=== PATIENT | male | born 1995 | race African-American/Black ===

== ENCOUNTER 2016-06-21 22:08 | Emergency (ER) | payer MEDICAID ==
[~2016-06-21] VITALS: Ht 177.8 cm; Wt 65.9 kg
[2016-06-21 22:12] VITALS: BP 127/73; TEMP 97.9
[2016-06-21 22:42] VITALS: PULSE 79
== END 2016-06-21 22:42 | disposition home or self-care (01) ==
LOC: COL.ER 22:08
DX: H00.013 Hordeolum externum right eye, unspecified eyelid (principal); F17.210 Nicotine dependence, cigarettes, uncomplicated

== ENCOUNTER 2017-08-06 13:58 | Emergency (ER) | payer MEDICAID ==
[~2017-08-06] VITALS: Ht 177.8 cm; Wt 65.9 kg
[2017-08-06 14:04] VITALS: BP 115/61; TEMP 98.8
[2017-08-06] MEDS ORDERED: ILOTYCIN5 MG/GM OP (14:29)
[2017-08-06 14:47] VITALS: PULSE 59
== END 2017-08-06 14:48 | disposition home or self-care (01) ==
LOC: COL.ER 13:58
DX: H00.014 Hordeolum externum left upper eyelid (principal); F17.210 Nicotine dependence, cigarettes, uncomplicated

== ENCOUNTER 2017-08-07 23:45 | Emergency (ER) | payer MEDICAID ==
[~2017-08-07] VITALS: Ht 177.8 cm; Wt 65.9 kg
[~2017-08-07 23:45] MED LIST: ILOTYCIN5 MG/GM OP
[2017-08-07 23:52] VITALS: BP 125/77; TEMP 98.4
[2017-08-08 01:52] VITALS: PULSE 70
== END 2017-08-08 01:52 | disposition home or self-care (01) ==
LOC: COL.ER 23:45
DX: S20.211A Contusion of right front wall of thorax, initial encounter (principal); F17.210 Nicotine dependence, cigarettes, uncomplicated; W16.92XA Jumping or diving into unspecified water causing other injury, initial encounter; W22.8XXA Striking against or struck by other objects, initial encounter

== ENCOUNTER 2019-09-24 09:53 | Emergency (ER) | payer SELFPAY ==
[~2019-09-24] VITALS: Ht 177.8 cm; Wt 66.8 kg
[2019-09-24 09:59] VITALS: BP 139/82; TEMP 98.2
[2019-09-24 10:32] LABS: BASO # 0.1 (0.0-0.2); BASO % 0.6 % (0.0-2.0); EOS # 0.4 (0.0-0.7); EOS % 4.6 % (0-4.0); GRAN # 4.7 (1.4-6.5); GRAN % 56.9 % (42.2-75.2); HEMOGLOBIN 14.8 g/dl (13.5-18.0); LYMPH # 2.5 (1.2-3.4); LYMPH % 30.3 % (20.0-51.0); MEAN CELL VOLUME 92 fl (80.0-100.0); MEAN CORPUSCULAR HEMOGLOBIN 32 pg (27.0-31.0); MEAN CORPUSCULAR HGB CONC 34 g/dl (33.0-37.0); MEAN PLATELET VOLUME 10.3 fl (7.4-10.4); MONO # 0.6 (0.1-0.6); MONO % 7.4 % (1.7-9.3); PLATELET COUNT 266 K/mm3 (130-400); RED BLOOD COUNT 4.69 M/mm3 (4.20-5.60); REDCELL DISTRIBUTION WIDTH-CV 11.9 % (11.5-14.5)
[2019-09-24 10:35] LABS: PH 7 (5-8); SQUAMOUS EPITHELIAL None Seen /hpf; URINE APPEARANCE Clear; URINE BACTERIA None Seen /hpf; URINE BILIRUBIN Negative (NEGATIVE); URINE BLOOD 1+ (NEGATIVE); URINE COLOR Straw; URINE GLUCOSE Negative (NEGATIVE); URINE KETONE Negative (NEGATIVE); URINE LEUKOCYTE ESTERASE Negative (NEGATIVE); URINE NITRATE Negative (NEGATIVE); URINE PROTEIN(semi-quant) Negative (NEGATIVE); URINE RBC 0-2 /hpf; URINE UROBILINOGEN Negative (NEGATIVE); URINE WBC 0-2 /hpf
[2019-09-24 10:43] LABS: ALBUMIN 4.1 gm/dL (3.5-5.0); BILIRUBIN,TOTAL 0.3 mg/dL (0.0-1.0); C-REACTIVE PROTEIN 0.6 mg/dL (0.0-0.9); CALCIUM 8.9 mg/dL (8.4-10.2); CREATININE, serum 0.84 (0.66-1.25); POTASSIUM 4.1 mmol/L (3.4-5.0); TOTAL PROTEIN 7.1 gm/dL (6.4-8.2)
[2019-09-24] MEDS ORDERED: VALIUM 5MG T5 MG/TAB PO (11:08)
[2019-09-24 11:26] VITALS: PULSE 66
[2019-09-24 17:02] LABS: COLLECTION METHOD CLEAN CATCH
== END 2019-09-24 11:27 | disposition home or self-care (01) ==
LOC: COL.ER 09:53
PROVIDERS: Nurse Practitioner Primary Care
DX: M54.9 Dorsalgia, unspecified (principal)
CPT/HCPCS: J1885; J2270

== ENCOUNTER 2020-04-24 23:14 | Emergency (ER) | payer SELFPAY ==
[~2020-04-24] VITALS: Ht 177.8 cm; Wt 74.0 kg
[~2020-04-24 23:14] MED LIST changes: +VALIUM 5MG T5 MG/TAB PO
[2020-04-24 23:19] VITALS: TEMP 98.7
[2020-04-25 01:20] VITALS: BP 130/65; PULSE 68
== END 2020-04-25 01:20 | disposition home or self-care (01) ==
LOC: COL.ER 23:14
DX: M79.641 Pain in right hand (principal); F10.129 Alcohol abuse with intoxication, unspecified; F17.290 Nicotine dependence, other tobacco product, uncomplicated; W22.8XXA Striking against or struck by other objects, initial encounter